=== PATIENT | female | born 1960 | race Caucasian/White ===

== ENCOUNTER 2022-04-11 13:29 | Emergency (ER) | payer BC ==
[2022-04-11 14:25] LABS: #Eosinphils 0.3 thou/uL (0.0-0.7); #Lymphocytes 1.7 thou/uL (1.20-3.40); #Monocytes 0.9 thou/uL (0.11-0.59); #Neutrophils 4.3 thou/uL (1.40-6.50); %Basophils 0.4 % (0.0-1.0); %Eosinophils 3.7 % (0.0-10.0); %Lymphocytes 23.5 % (21.0-51.0); %Neutrophils 60.5 % (42.0-75.0); Hemoglobin 10.6 g/dL (12.0-16.0); Mean Corpuscular HGB CONC 33.5 g/dL (32.0-36.0); Mean Corpuscular Hemoglobin 31.9 pg (27.0-31.0); Mean Platelet Volume 6.6 fL (7.4-10.4); Platelet Count 348 thou/uL (130-400); RBC Distribution Width 12.7 % (11.5-14.5); Red Blood Cell (RBC) Count 3.33 mill/uL (4.20-5.40); White Blood Cell (WBC) Count 7.2 thou/uL (4.8-10.8)
[2022-04-11 14:45] LABS: ALT (SGPT) 21 U/L (8-55); AST (SGOT) 19 U/L (5-34); Albumin 3.8 g/dL (3.5-5.0); Alkaline Phosphatase 55 U/L (40-110); Anion Gap 11 mmol/L (10-20); BUN (Urea Nitrogen) 12 mg/dL (9.8-20.1); Bilirubin, Total 0.4 mg/dL (0.2-1.2); Calc. Creatinine Clearance 0 mL/min (70-130); Calcium 8.7 mg/dL (7.8-10.44); Carbon Dioxide 27 mmol/L (22-29); Chloride 93 mmol/L (98-107); Estimated GFR 86; Globulin 2.7 g/dL (2.4-3.5); Glucose 94 mg/dL (70-105); Potassium 4.1 mmol/L (3.5-5.1); Protein, Total 6.5 g/dL (6.0-8.3); Sodium 127 mmol/L (136-145)
== END 2022-04-11 16:01 | disposition home or self-care (01) ==
LOC: ERS 13:29
DX: D64.9 Anemia, unspecified (principal); E87.1 Hypo-osmolality and hyponatremia; I10 Essential (primary) hypertension; Z79.899 Other long term (current) drug therapy
CPT/HCPCS: 36415; 80053; 84484; 85025; 93005; 96360

== ENCOUNTER 2022-08-25 13:04 | Outpatient (CLI) | payer BC ==
[2022-08-25 13:53] LABS: Anion Gap 14 mmol/L (10-20); BUN (Urea Nitrogen) 13 mg/dL (9.8-20.1); Calc. Creatinine Clearance 0 mL/min (70-130); Calcium 9.5 mg/dL (7.8-10.44); Carbon Dioxide 23 mmol/L (23-31); Chloride 103 mmol/L (98-107); Estimated GFR 75; Glucose 101 mg/dL (80-115); INR-International Normal Ratio 0.9; PTT 26.7 sec (22.0-33.0); Potassium 4.4 mmol/L (3.5-5.1); Prothrombin Time 10.3 sec (9.5-12.1); Sodium 136 mmol/L (136-145)
[2022-08-25 14:02] LABS: Hemoglobin 11.3 g/dL (12.0-15.5); Mean Corpuscular HGB CONC 33.8 g/dL (32.0-36.0); Mean Corpuscular Hemoglobin 30.4 pg (27.0-33.0); Mean Corpuscular Volume 89.8 fl (81.6-98.3); Mean Platelet Volume 9.4 fl (7.4-10.4); Platelet Count 418 10x3/uL (150-450); RBC Distribution Width 13.6 % (11.5-14.5); Red Blood Cell (RBC) Count 3.72 10x6/uL (3.90-5.03); White Blood Cell (WBC) Count 7.6 10x3/uL (3.5-10.5)
== END 2022-08-25 13:05 | disposition home or self-care (01) ==
LOC: LABBT 13:04
PROVIDERS: ATTEND Surgery
DX: Z01.812 Encounter for preprocedural laboratory examination (principal); M48.062 Spinal stenosis, lumbar region with neurogenic claudication; M71.30 Other bursal cyst, unspecified site
CPT/HCPCS: 80048; 85027; 85610; 85730

== ENCOUNTER 2022-08-28 06:04 | Observation (INO) | payer BC ==
[2022-08-27 12:19] VITALS: BMI 33.5
[2022-08-28] MEDS ORDERED: Thrombin 5000 UNITS/5 ML VIAL ONE (06:24)
[2022-08-28] MEDS ORDERED: Vancomycin 1 GM VIAL ONE (06:24)
[2022-08-28] MEDS ORDERED: Famotidine/PF 20 mg/2ml Vial ONE (06:46)
[2022-08-28] MEDS ORDERED: PROPOFOL 200 MG/20 ML VIAL ONE (06:51)
[2022-08-28] MEDS ORDERED: Lidocaine 1% PF 5 ML VIAL ONE (06:51)
[2022-08-28] MEDS ORDERED: PHENYLEPHRINE-NS 100 MCG/ML 10 ML SYRINGE ONE ×2 (06:51→08:41)
[2022-08-28] MEDS ORDERED: Dexamethasone 20 MG/5 ML VIAL ONE (06:51)
[2022-08-28] MEDS ORDERED: Ondansetron PF 4 MG/2 ML Vial ONE (06:51)
[2022-08-28] MEDS ORDERED: Rocuronium Bromide 10 MG/ML (10ML VIAL) ONE (06:51)
[2022-08-28 07:02] LABS: SARS-CoV-2 NAA Rapid Test Not Detected (NotDetected)
[2022-08-28] MEDS ORDERED: Fentanyl 250 MCG/5 ML VIAL ONE (07:10)
[2022-08-28] MEDS ORDERED: Sodium Chloride 0.9% 100 ML ONE (07:11)
[2022-08-28] MEDS ORDERED: CEFAZOLIN 2 GM VIAL ONE (07:11)
[2022-08-28] MEDS ORDERED: SUGAMMADEX SODIUM 200 MG/2 ML VIAL ONE (10:02)
[2022-08-28] MEDS ORDERED: Bacitracin Zinc Ointment 30 gm TUBE ONE (10:34)
[2022-08-28] MEDS ORDERED: diphenhydrAMINE 25 MG CAP PO PRN (10:43)
[2022-08-28] MEDS ORDERED: Acetaminophen/Codeine 30-300mg Tablet PO PRN (10:43)
[2022-08-28] MEDS ORDERED: Ondansetron PF 4 MG/2 ML Vial IVP PRN (10:43)
[2022-08-28] MEDS ORDERED: HYDROcodone/Acetaminophen 5/325 mg Tablet PO PRN (10:46)
[2022-08-28] MEDS ORDERED: Fentanyl 100 MCG/2 ML VIAL ONE ×2 (11:00→11:24)
[2022-08-28] MEDS ORDERED: Promethazine HCl 25 MG/ML VIAL IVPB PRN (11:02)
[2022-08-28] MEDS ORDERED: PACU-Morphine 4MG/ML VIAL SLOW IVP PRN (11:02)
[2022-08-28] MEDS ORDERED: Morphine Sulfate 2 MG/ML SYRINGE SLOW IVP PRN (11:02)
[2022-08-28] MEDS ORDERED: HYDROmorphone 2 MG/ML VIAL SLOW IVP PRN (11:02)
[2022-08-28] MEDS ORDERED: Ondansetron HCl/PF 4 MG/2 ML Vial IVP PRN (11:02)
[2022-08-28] MEDS ORDERED: Promethazine HCl 25 MG/ML VIAL IM PRN (11:02)
[2022-08-28] MEDS ORDERED: Morphine 4 MG/ML VIAL SLOW IVP PRN (11:21)
[2022-08-28] MEDS: Sodium Chloride 0.9% 1,000 ML IV SCH (12:55)
[2022-08-28] MEDS ORDERED: Polyethylene Glycol 3350 17 GM Packet PO PRN (13:24)
[2022-08-28] MEDS ORDERED: hydrALAZINE 20 MG/ML VIAL SLOW IVP PRN (13:24)
[2022-08-28] MEDS ORDERED: Diazepam 5 MG TAB PO PRN (14:18)
[2022-08-28] MEDS: CEFAZOLIN 2 GM in Sodium Chloride 0.9% 100 ML IVPB SCH ×2 (14:18→23:36)
[2022-08-28] MEDS ORDERED: Diazepam 5 MG TAB PO SCH (14:19)
[2022-08-28] MEDS: Ketorolac Tromethamine 30 MG/ML VIAL IVP PRN (14:19)
[2022-08-28] MEDS: HYDROcodone/Acetaminophen 10/325 mg Tablet PO PRN ×2 (14:19→20:27)
[2022-08-28] MEDS: Dexamethasone 4 MG TAB PO SCH ×2 (14:19→20:25)
[2022-08-28] MEDS: Acetaminophen 325 MG TAB PO PRN (17:45)
[2022-08-28] MEDS: Baclofen 10 MG TAB PO SCH (20:27)
[2022-08-28] MEDS: Docusate 100 MG CAP PO SCH (20:28)
[2022-08-28] MEDS ORDERED: Pregabalin 50 MG CAP PO SCH (21:00)
[2022-08-28] MEDS ORDERED: metFORMIN 500 MG TAB PO SCH (21:00)
[2022-08-28] MEDS ORDERED: Amlodipine 5 MG TAB PO SCH (21:00)
[2022-08-28 21:21] VITALS: TEMP 97.8
[2022-08-29] MEDS: Sodium Chloride 0.9% 1,000 ML IV SCH (00:29)
[2022-08-29] MEDS: Dexamethasone 4 MG TAB PO SCH ×2 (03:02→13:34)
[2022-08-29 05:46] LABS: #Lymphocytes 1.2 thou/uL (1.20-3.40); #Monocytes 0.9 thou/uL (0.11-0.59); #Neutrophils 10.4 thou/uL (1.40-6.50); %Basophils 0.2 % (0.0-1.0); %Eosinophils 0.1 % (0.0-10.0); %Lymphocytes 9.3 % (21.0-51.0); %Neutrophils 83.4 % (42.0-75.0); Hemoglobin 10.2 g/dL (12.0-16.0); Mean Corpuscular HGB CONC 32.2 g/dL (32.0-36.0); Mean Corpuscular Hemoglobin 30.8 pg (27.0-31.0); Mean Corpuscular Volume 95.4 fl (78.0-98.0); Mean Platelet Volume 7.5 fL (7.4-10.4); Platelet Count 339 10x3/uL (130-400); RBC Distribution Width 12.3 % (11.5-14.5); White Blood Cell (WBC) Count 12.4 10x3/uL (4.8-10.8)
[2022-08-29] MEDS: Acetaminophen 325 MG TAB PO PRN (06:00)
[2022-08-29 06:08] LABS: Anion Gap 14 mmol/L (10-20); BUN (Urea Nitrogen) 12 mg/dL (9.8-20.1); Calc. Creatinine Clearance 107 mL/min (70-130); Calcium 8.9 mg/dL (7.8-10.44); Carbon Dioxide 22 mmol/L (23-31); Chloride 104 mmol/L (98-107); Estimated GFR 88; Glucose 127 mg/dL (80-115); Potassium 4.3 mmol/L (3.5-5.1); Sodium 136 mmol/L (136-145)
[2022-08-29 06:11] VITALS: BP 149/80
[2022-08-29] MEDS: HYDROcodone/Acetaminophen 10/325 mg Tablet PO PRN (08:55)
[2022-08-29] MEDS: Docusate 100 MG CAP PO SCH (08:56)
[2022-08-29] MEDS: Baclofen 10 MG TAB PO SCH (08:56)
[2022-08-29] MEDS: Ketorolac Tromethamine 30 MG/ML VIAL IVP PRN (08:59)
[2022-08-29] MEDS ORDERED: Estradiol 1 MG TAB PO SCH (09:00)
[2022-08-29] MEDS ORDERED: Pregabalin 50 MG CAP PO SCH (09:00)
[2022-08-29] MEDS ORDERED: Dexamethasone 1 MG TAB PO SCH (14:00)
[2022-08-30] MEDS ORDERED: Dexamethasone 1 MG TAB PO SCH (14:00)
[2022-08-31] MEDS ORDERED: Dexamethasone 1 MG TAB PO SCH (14:00)
== END 2022-08-29 10:30 | disposition home or self-care (01) ==
LOC: SDC 06:04 → SJJU 11:52
PROVIDERS: ADMIT Surgery; ATTEND Surgery
PROC: 01NB0ZZ Release Lumbar Nerve, Open Approach (ICD-10-PCS; principal; 2022-08-28)
PROC: 0QB00ZZ Excision of Lumbar Vertebra, Open Approach (ICD-10-PCS; 2022-08-28)
PROC: 01NB0ZZ Release Lumbar Nerve, Open Approach (ICD-10-PCS; 2022-08-28)
PROC: 01NB0ZZ Release Lumbar Nerve, Open Approach (ICD-10-PCS; 2022-08-28)
PROC: 01NR0ZZ Release Sacral Nerve, Open Approach (ICD-10-PCS; 2022-08-28)
DX: M71.38 Other bursal cyst, other site (principal); M48.062 Spinal stenosis, lumbar region with neurogenic claudication; M51.26 Other intervertebral disc displacement, lumbar region; M47.816 Spondylosis without myelopathy or radiculopathy, lumbar region; M51.17 Intervertebral disc disorders with radiculopathy, lumbosacral region; M48.07 Spinal stenosis, lumbosacral region; Z79.1 Long term (current) use of non-steroidal anti-inflammatories (NSAID); Z79.84 Long term (current) use of oral hypoglycemic drugs; Z79.899 Other long term (current) drug therapy; Z88.1 Allergy status to other antibiotic agents; Z88.8 Allergy status to other drugs, medicaments and biological substances; Z91.048 Other nonmedicinal substance allergy status; Z20.822 Contact with and (suspected) exposure to COVID-19
CPT/HCPCS: 36415; 80048; 85025; 96365; 96375; 96376; G0378; J1100; J1885; J2270; J2405; J2704; J3010; J3370; J3490; J7050; J8540; S0028; U0002

== ENCOUNTER 2022-12-02 21:48 | Inpatient (IN) | payer BC ==
[~2022-12-02 21:48] MED LIST: Iopamidol-370 76% 500 ML MDV (1 ML CHARGE) ONE
[2022-12-02] MEDS ORDERED: Acetaminophen 500 MG TAB ONE (22:05)
[2022-12-02] MEDS ORDERED: Cefepime 2 GM VIAL ONE (22:05)
[2022-12-02 22:39] LABS: Hemoglobin 9.5 g/dL (12.0-16.0); Mean Corpuscular HGB CONC 33.4 g/dL (32.0-36.0); Mean Corpuscular Hemoglobin 30.1 pg (27.0-31.0); Mean Corpuscular Volume 90.3 fl (78.0-98.0); Platelet Count 515 10x3/uL (130-400); RBC Distribution Width 13.6 % (11.5-14.5); Red Blood Cell (RBC) Count 3.14 mill/uL (4.20-5.40); White Blood Cell (WBC) Count 32.9 10x3/uL (4.8-10.8)
[2022-12-02 22:44] LABS: INR-International Normal Ratio 1.1; PTT 25.5 sec (22.9-36.1); Prothrombin Time 14.8 sec (12.0-14.7)
[2022-12-02 22:49] LABS: Acetaminophen Less than 10.0 mcg/mL (10.0-30.0); Alcohol Less than 10 mg/dL (Less than 10); Salicylate Less than 8.0 mg/dL (15.0-30.0)
[2022-12-02 22:51] LABS: ALT (SGPT) 22 U/L (8-55); AST (SGOT) 21 U/L (5-34); Albumin 3.3 g/dL (3.4-4.8); Alkaline Phosphatase 204 U/L (40-110); Anion Gap 17 mmol/L (10-20); BUN (Urea Nitrogen) 16 mg/dL (9.8-20.1); Bilirubin, Total 0.6 mg/dL (0.2-1.2); CK (CPK) 18 U/L (29-168); CRP (Inflammatory) 3.59 mg/dL (= or < 0.5); Calc. Creatinine Clearance 0 mL/min (70-130); Calcium 8.6 mg/dL (7.8-10.44); Carbon Dioxide 18 mmol/L (23-31); Chloride 100 mmol/L (98-107); Estimated GFR 57; Globulin 2.9 g/dL (2.4-3.5); Glucose 124 mg/dL (80-115); Magnesium 1.5 mg/dL (1.6-2.6); Potassium 4.4 mmol/L (3.5-5.1); Protein, Total 6.2 g/dL (5.8-8.1); Sodium 131 mmol/L (136-145)
[2022-12-02 22:56] LABS: SARS-CoV-2 NAA Rapid Test Not Detected (NotDetected)
[2022-12-02 23:08] LABS: Band 12 % (5-11); Lymphocytes 2 % (21-51); MDiff Complete? YES; Neutrophil 86 % (42-75); Platelet Morphology Comment Appears Increased; Polychromasia SLIGHT = 2-3 cells (100X) (0-2/hpf); Tear Drops SLIGHT = 2-5 cells (100X) (0-1/hpf)
[2022-12-02] MEDS ORDERED: Magnesium 2 GM/50 ML BAG (IN WATER) ONE (23:19)
[2022-12-02] MEDS ORDERED: Vancomycin 1 GM/200 ML (FROZEN) BAG ONE (23:46)
[2022-12-03 01:44] LABS: Lactic Acid 2.5 mmol/L (0.5-2.2)
[2022-12-03] MEDS ORDERED: Ondansetron ODT 4 MG TAB PO PRN (01:48)
[2022-12-03] MEDS ORDERED: traZODone HCl 50 MG TAB PO PRN (01:54)
[2022-12-03 03:34] VITALS: BMI 34.5
[2022-12-03] MEDS ORDERED: Phenol 118 ML BOT PO PRN (03:59)
[2022-12-03] MEDS ORDERED: hydrOXYzine 25 MG TAB PO SCH (04:00)
[2022-12-03 05:22] LABS: Hemoglobin 9.5 g/dL (12.0-16.0); Mean Corpuscular HGB CONC 32.3 g/dL (32.0-36.0); Mean Corpuscular Hemoglobin 29.6 pg (27.0-31.0); Mean Corpuscular Volume 91.4 fl (78.0-98.0); Mean Platelet Volume 7.3 fL (7.4-10.4); Platelet Count 425 10x3/uL (130-400); Red Blood Cell (RBC) Count 3.22 mill/uL (4.20-5.40)
[2022-12-03 05:43] LABS: ALT (SGPT) 19 U/L (8-55); AST (SGOT) 25 U/L (5-34); Albumin 2.5 g/dL (3.4-4.8); Alkaline Phosphatase 151 U/L (40-110); Anion Gap 18 mmol/L (10-20); BUN (Urea Nitrogen) 18 mg/dL (9.8-20.1); Bilirubin, Total 0.8 mg/dL (0.2-1.2); Calc. Creatinine Clearance 82 mL/min (70-130); Calcium 8.1 mg/dL (7.8-10.44); Carbon Dioxide 15 mmol/L (23-31); Chloride 101 mmol/L (98-107); Estimated GFR 60; Globulin 3.2 g/dL (2.4-3.5); Glucose 104 mg/dL (80-115); Potassium 4.6 mmol/L (3.5-5.1); Protein, Total 5.7 g/dL (5.8-8.1); Sodium 129 mmol/L (136-145)
[2022-12-03 05:56] LABS: Band 19 % (5-11); Lymphocytes 1 % (21-51); MDiff Complete? YES; Neutrophil 80 % (42-75); Platelet Morphology Comment Appears Increased; Polychromasia SLIGHT = 2-3 cells (100X) (0-2/hpf)
[2022-12-03 08:38] LABS: Bacteria/HPF None Seen HPF (None Seen); Bilirubin Negative (Negative); Blood, Urine Negative (Negative); Clarity Clear (Clear); Glucose, Urine (Dipstick) Normal (Negative); Ketone, Urine Negative (Negative); Leukocyte 75 Leu/uL (Negative); Nitrite Negative (Negative); Protein, Urine (Dipstick) 20 mg/dL (Neg-Trace); Specific Gravity, Urine 1.046 (1.002-1.036); Urobilinogen Normal mg/dL (Less than 2); WBC/HPF 21-50 HPF (0-3)
[2022-12-03] MEDS ORDERED: Magnevist 469MG/ML 20 ML VIAL ONE (09:29)
[2022-12-03] MEDS: Sodium Chloride 0.9% 1,000 ML IV SCH ×2 (09:37→20:02)
[2022-12-03] MEDS: Cefepime 1 GM in Sodium Chloride 0.9% 100 ML IVPB SCH ×2 (09:37→21:17)
[2022-12-03] MEDS: Baclofen 10 MG TAB PO SCH ×2 (09:38→21:16)
[2022-12-03] MEDS: Famotidine 20 MG TAB PO SCH ×2 (09:38→21:16)
[2022-12-03] MEDS: Pregabalin 50 MG CAP PO SCH ×2 (09:38→21:16)
[2022-12-03] MEDS: Acetaminophen 325 MG TAB PO PRN (11:42)
[2022-12-03] MEDS: metroNIDAZOLE 500 MG in Premix Bag 1 BAG IVPB SCH ×2 (11:42→23:57)
[2022-12-03] MEDS ORDERED: FENTANYL 50 MCG/ML 1 ML VIAL ONE (15:57)
[2022-12-03] MEDS ORDERED: metFORMIN 500 MG TAB PO SCH (17:00)
[2022-12-03 19:56] LABS: Actual Bicarbonate (HCO3a) 18.5 mEq/L (22-28); Base Excess (BEa) -4.6 mEq/L (-2.0 to +3.0); CO2 Tension 27.5 mmHg (35.0-45.0); Carboxyhemoglobin (COHb) 0.1 gm% (0.0-3.0); Hemoglobin (Hb) 9.7 g/dL (12.0-16.0); O2 Tension (PaO2), arterial 70.4 mmHg (> 80.0); Potassium - ABG Lab 4.64 mmol/L (3.70-5.30); pH, Arterial 7.45 (7.35-7.45)
[2022-12-03 19:58] LABS: ALV-art Gradient 44.955 mmHg (0-20); Puncture Site RRA
[2022-12-03 20:00] LABS: Campy jejuni + coli by PCR Negative (Negative); STEC Shiga Toxin 1+2 Negative (Negative); Salmonella spp. by PCR Negative (Negative); Shigella spp + EIEC by PCR Negative (Negative)
[2022-12-03] MEDS: Amlodipine 5 MG TAB PO SCH (20:06)
[2022-12-03] MEDS ORDERED: Vancomycin 1 GM in Premix Bag 1 BAG IVPB SCH (21:00)
[2022-12-03] MEDS: Vancomycin 1 GM in Premix Bag 1 BAG IVPB SCH (21:12)
[2022-12-04] MEDS: Sodium Chloride 0.9% 1,000 ML IV SCH ×2 (06:11→15:29)
[2022-12-04 06:55] LABS: Hemoglobin 8.7 g/dL (12.0-16.0); Mean Corpuscular HGB CONC 31.9 g/dL (32.0-36.0); Mean Corpuscular Hemoglobin 28.8 pg (27.0-31.0); Mean Corpuscular Volume 90.2 fl (78.0-98.0); Mean Platelet Volume 7.5 fL (7.4-10.4); Platelet Count 400 10x3/uL (130-400); RBC Distribution Width 13.6 % (11.5-14.5); Red Blood Cell (RBC) Count 3.01 mill/uL (4.20-5.40); White Blood Cell (WBC) Count 35.7 10x3/uL (4.8-10.8)
[2022-12-04 07:14] LABS: ALT (SGPT) 19 U/L (8-55); AST (SGOT) 28 U/L (5-34); Albumin 2.3 g/dL (3.4-4.8); Alkaline Phosphatase 126 U/L (40-110); Anion Gap 13 mmol/L (10-20); BUN (Urea Nitrogen) 18 mg/dL (9.8-20.1); Bilirubin, Total 0.6 mg/dL (0.2-1.2); Calc. Creatinine Clearance 109 mL/min (70-130); Carbon Dioxide 18 mmol/L (23-31); Chloride 102 mmol/L (98-107); Estimated GFR 85; Globulin 3.2 g/dL (2.4-3.5); Glucose 94 mg/dL (80-115); Potassium 3.8 mmol/L (3.5-5.1); Protein, Total 5.5 g/dL (5.8-8.1); Sodium 129 mmol/L (136-145)
[2022-12-04 08:42] LABS: Band 26 % (5-11); Eosinophils 1 % (0-10); Lymphocytes 1 % (21-51); MDiff Complete? YES; Monocytes 2 % (0-10); Neutrophil 70 % (42-75); Platelet Morphology Comment Appears Adequate; Polychromasia SLIGHT = 2-3 cells (100X) (0-2/hpf)
[2022-12-04] MEDS: Acetaminophen 325 MG TAB PO PRN (09:09)
[2022-12-04] MEDS: Pregabalin 50 MG CAP PO SCH ×2 (09:10→21:22)
[2022-12-04] MEDS: Famotidine 20 MG TAB PO SCH (09:11)
[2022-12-04] MEDS: Baclofen 10 MG TAB PO SCH ×2 (09:11→21:22)
[2022-12-04] MEDS: metroNIDAZOLE 500 MG in Premix Bag 1 BAG IVPB SCH ×2 (09:12→13:00)
[2022-12-04] MEDS: cefTRIAXone\\ROCEPHIN 2 GM in Sodium Chloride 0.9% 100 ML IVPB SCH ×2 (09:26→21:42)
[2022-12-04] MEDS: Ampicillin 2 GM in Sodium Chloride 0.9% 100 ML IVPB SCH ×4 (09:27→21:00)
[2022-12-04] MEDS: Vancomycin 1 GM in Premix Bag 1 BAG IVPB SCH ×2 (09:27→18:30)
[2022-12-04] MEDS ORDERED: HumaLOG 300 UNITS/3 ML VIAL SC PRN ×2 (10:01)
[2022-12-04] MEDS ORDERED: Dextrose 50% Abboject 50 ML SYRINGE SLOW IVP PRN (10:01)
[2022-12-04] MEDS ORDERED: Dextrose 5% in Water 1,000 ML IV PRN (10:01)
[2022-12-04] MEDS ORDERED: Hydrocortisone Sod Succ/PF 100 mg/2 ml Vial IVP SCH (12:00)
[2022-12-04 12:45] LABS: CSF, Glucose 54 mg/dl (40-70); CSF, Protein 31 mg/dL (15-40)
[2022-12-04 13:51] LABS: CSF Source CSF; Clarity Clear (Clear); Tube # 4
[2022-12-04] MEDS ORDERED: Micafungin 100 MG in Sodium Chloride 0.9% 100 ML IVPB SCH (15:00)
[2022-12-04] MEDS ORDERED: methylPREDNISolone Sod Succ/PF 125 MG/2 ML VIAL IVP SCH (16:45)
[2022-12-04] MEDS: Amlodipine 5 MG TAB PO SCH (21:22)
[2022-12-05] MEDS: metroNIDAZOLE 500 MG in Premix Bag 1 BAG IVPB SCH ×4 (00:08→13:26)
[2022-12-05] MEDS: Sodium Chloride 0.9% 1,000 ML IV SCH ×2 (00:26→13:26)
[2022-12-05] MEDS: Ampicillin 2 GM in Sodium Chloride 0.9% 100 ML IVPB SCH ×3 (01:10→11:08)
[2022-12-05] MEDS ORDERED: Ipratropium/Albuterol 3 ML NEB NEB SCH (06:15)
[2022-12-05] MEDS: Benzonatate 100 MG CAP PO PRN (07:46)
[2022-12-05] MEDS: Baclofen 10 MG TAB PO SCH ×2 (07:52→20:59)
[2022-12-05] MEDS: Pregabalin 50 MG CAP PO SCH (07:52)
[2022-12-05 08:34] LABS: Hemoglobin 8.8 g/dL (12.0-16.0); Mean Corpuscular HGB CONC 32.2 g/dL (32.0-36.0); Mean Corpuscular Hemoglobin 29.3 pg (27.0-31.0); Mean Corpuscular Volume 90.7 fl (78.0-98.0); Mean Platelet Volume 7.7 fL (7.4-10.4); Platelet Count 461 10x3/uL (130-400); RBC Distribution Width 13.7 % (11.5-14.5); White Blood Cell (WBC) Count 16.6 10x3/uL (4.8-10.8)
[2022-12-05 08:42] LABS: Vancomycin, Trough 10.3 ug/mL
[2022-12-05 08:45] LABS: ALT (SGPT) 19 U/L (8-55); AST (SGOT) 25 U/L (5-34); Albumin 2.4 g/dL (3.4-4.8); Alkaline Phosphatase 117 U/L (40-110); Anion Gap 12 mmol/L (10-20); BUN (Urea Nitrogen) 12 mg/dL (9.8-20.1); Bilirubin, Total 0.3 mg/dL (0.2-1.2); Calc. Creatinine Clearance 135 mL/min (70-130); Calcium 8.1 mg/dL (7.8-10.44); Carbon Dioxide 20 mmol/L (23-31); Chloride 105 mmol/L (98-107); Estimated GFR 100; Globulin 3.3 g/dL (2.4-3.5); Glucose 200 mg/dL (80-115); Potassium 3.5 mmol/L (3.5-5.1); Protein, Total 5.7 g/dL (5.8-8.1); Sodium 133 mmol/L (136-145)
[2022-12-05 08:57] LABS: CRP (Inflammatory) 35.03 mg/dL (= or < 0.5)
[2022-12-05] MEDS ORDERED: Pantoprazole 40 MG VIAL IVP SCH (09:00)
[2022-12-05] MEDS ORDERED: metFORMIN 500 MG TAB PO SCH (09:15)
[2022-12-05 09:54] LABS: Band 5 % (5-11); Hypochromia SLIGHT = 6-15 cells (100X) (0-5/hpf); Lymphocytes 7 % (21-51); MDiff Complete? YES; Monocytes 3 % (0-10); Neutrophil 85 % (42-75); Platelet Morphology Comment Appears Increased; Polychromasia SLIGHT = 2-3 cells (100X) (0-2/hpf)
[2022-12-05] MEDS: Saccharomyces boulardii 250 MG CAP PO SCH (09:55)
[2022-12-05] MEDS: Famotidine 20 MG TAB PO SCH ×2 (09:55→20:52)
[2022-12-05] MEDS: Vancomycin 1 GM in Premix Bag 1 BAG IVPB SCH (10:35)
[2022-12-05] MEDS: cefTRIAXone\\ROCEPHIN 2 GM in Sodium Chloride 0.9% 100 ML IVPB SCH (11:08)
[2022-12-05] MEDS ORDERED: methylPREDNISolone Sod Succ 40 MG VIAL IVP SCH (18:00)
[2022-12-05] MEDS ORDERED: predniSONE 20 MG TAB PO SCH (18:15)
[2022-12-05 19:14] LABS: Cytoplasmic (C-ANCA) <1:20 titer (Neg:<1:20); Myeloperoxidase AutoAbs <0.2 units (0.0-0.9); Perinuclear (P-ANCA) <1:20 titer (Neg:<1:20); Proteinase-3 AutoAbs Less than 0.2 units (0.0-0.9)
[2022-12-05] MEDS ORDERED: VANCOMYCIN 1.25 GM/250 ML BAG 1.25 GM in Premix Bag 1 BAG IVPB SCH (20:00)
[2022-12-05] MEDS: Vancomycin 1.5 GRAM/300 ML BAG 1.5 GM in Premix Bag 1 BAG IVPB SCH (20:44)
[2022-12-05] MEDS: Amlodipine 5 MG TAB PO SCH (20:59)
[2022-12-05] MEDS: Estradiol 1 MG TAB PO SCH (21:00)
[2022-12-05] MEDS: guaiFENesin/Codeine 200 mg/20 mg 10 ml Cup PO PRN (22:27)
[2022-12-05] MEDS ORDERED: Ipratropium/Albuterol 3 ML NEB NEB PRN (23:05)
[2022-12-06] MEDS: guaiFENesin/Codeine 200 mg/20 mg 10 ml Cup PO PRN ×2 (03:49→22:09)
[2022-12-06] MEDS: Vancomycin 1.5 GRAM/300 ML BAG 1.5 GM in Premix Bag 1 BAG IVPB SCH (08:26)
[2022-12-06] MEDS: Benzonatate 100 MG CAP PO PRN (08:26)
[2022-12-06] MEDS: CO Q-10 CAPSULE 100 MG PO SCH (08:26)
[2022-12-06] MEDS: Saccharomyces boulardii 250 MG CAP PO SCH (08:26)
[2022-12-06] MEDS: predniSONE 20 MG TAB PO SCH (08:27)
[2022-12-06] MEDS: metFORMIN 500 MG TAB PO SCH (08:28)
[2022-12-06] MEDS: Famotidine 20 MG TAB PO SCH ×2 (08:28→20:36)
[2022-12-06] MEDS: Baclofen 10 MG TAB PO SCH ×2 (08:28→20:36)
[2022-12-06 09:23] LABS: #Lymphocytes 1.4 thou/uL (1.20-3.40); #Neutrophils 7.3 thou/uL (1.40-6.50); %Basophils 0.2 % (0.0-1.0); %Eosinophils 0.1 % (0.0-10.0); %Lymphocytes 14.2 % (21.0-51.0); %Neutrophils 75.6 % (42.0-75.0); Mean Corpuscular HGB CONC 33.1 g/dL (32.0-36.0); Mean Corpuscular Hemoglobin 29.5 pg (27.0-31.0); Mean Platelet Volume 7.9 fL (7.4-10.4); Platelet Count 577 10x3/uL (130-400); RBC Distribution Width 13.7 % (11.5-14.5); Red Blood Cell (RBC) Count 3.37 mill/uL (4.20-5.40); White Blood Cell (WBC) Count 9.7 10x3/uL (4.8-10.8)
[2022-12-06 09:46] LABS: ALT (SGPT) 20 U/L (8-55); AST (SGOT) 18 U/L (5-34); Albumin 2.9 g/dL (3.4-4.8); Alkaline Phosphatase 114 U/L (40-110); Anion Gap 12 mmol/L (10-20); BUN (Urea Nitrogen) 14 mg/dL (9.8-20.1); Bilirubin, Total 0.3 mg/dL (0.2-1.2); Calc. Creatinine Clearance 137 mL/min (70-130); Calcium 8.7 mg/dL (7.8-10.44); Carbon Dioxide 21 mmol/L (23-31); Chloride 103 mmol/L (98-107); Estimated GFR 101; Globulin 3.3 g/dL (2.4-3.5); Glucose 166 mg/dL (80-115); Magnesium 1.7 mg/dL (1.6-2.6); Phosphorus 2.6 mg/dL (2.3-4.7); Potassium 3.3 mmol/L (3.5-5.1); Protein, Total 6.2 g/dL (5.8-8.1); Sodium 133 mmol/L (136-145)
[2022-12-06] MEDS ORDERED: Benzonatate 100 MG CAP PO PRN (11:17)
[2022-12-06] MEDS ORDERED: Furosemide 20 MG/2 ML VIAL SLOW IVP SCH (11:45)
[2022-12-06] MEDS ORDERED: Electrolyte Replacement Protocol 1 EACH FS SCH (12:45)
[2022-12-06] MEDS ORDERED: Potassium Chloride 20 MEQ TAB PO SCH ×2 (14:00→21:00)
[2022-12-06] MEDS ORDERED: Magnesium 2 GM/50 ML(in water) 2 GM in Premix Bag 1 BAG IVPB SCH (14:00)
[2022-12-06] MEDS ORDERED: Electrolyte Replacement Protocol FS PRN (14:00)
[2022-12-06] MEDS ORDERED: Mometasone Furoate 120 PUFF 220 MCG INH SCH (14:00)
[2022-12-06 18:29] LABS: Potassium 3.5 mmol/L (3.5-5.1)
[2022-12-06] MEDS: Amlodipine 5 MG TAB PO SCH (20:37)
[2022-12-06] MEDS: Estradiol 1 MG TAB PO SCH (20:37)
[2022-12-06] MEDS: Losartan 25 MG TAB PO SCH (21:16)
[2022-12-07] MEDS: Acetaminophen 325 MG TAB PO PRN ×2 (00:38→17:11)
[2022-12-07] MEDS: guaiFENesin/Codeine 200 mg/20 mg 10 ml Cup PO PRN ×2 (03:40→21:48)
[2022-12-07 05:02] LABS: Anion Gap 13 mmol/L (10-20); BUN (Urea Nitrogen) 14 mg/dL (9.8-20.1); Calc. Creatinine Clearance 131 mL/min (70-130); Calcium 8.8 mg/dL (7.8-10.44); Carbon Dioxide 25 mmol/L (23-31); Chloride 100 mmol/L (98-107); Estimated GFR 100; Glucose 149 mg/dL (80-115); Magnesium 1.8 mg/dL (1.6-2.6); Potassium 3.4 mmol/L (3.5-5.1); Sodium 135 mmol/L (136-145)
[2022-12-07 05:07] LABS: Band 1 % (5-11); Hemoglobin 10.6 g/dL (12.0-16.0); Hypochromia SLIGHT = 6-15 cells (100X) (0-5/hpf); Lymphocytes 44 % (21-51); MDiff Complete? YES; Mean Corpuscular HGB CONC 34.6 g/dL (32.0-36.0); Mean Corpuscular Hemoglobin 30.5 pg (27.0-31.0); Mean Corpuscular Volume 88.1 fl (78.0-98.0); Mean Platelet Volume 7.8 fL (7.4-10.4); Monocytes 2 % (0-10); Neutrophil 47 % (42-75); Platelet Count 661 10x3/uL (130-400); Platelet Morphology Comment Appears Increased; RBC Distribution Width 13.6 % (11.5-14.5); Reactive Lymphocytes 6 % (0-10); White Blood Cell (WBC) Count 9.6 10x3/uL (4.8-10.8)
[2022-12-07] MEDS: Mometasone Furoate 30 PUFF 220 MCG INH SCH (07:03)
[2022-12-07 07:50] LABS: Vancomycin, Trough 10.5 ug/mL
[2022-12-07] MEDS ORDERED: Magnesium 2 GM/50 ML(in water) 2 GM in Premix Bag 1 BAG IVPB SCH (08:00)
[2022-12-07] MEDS ORDERED: Potassium Chloride 20 MEQ TAB PO SCH ×2 (08:00)
[2022-12-07] MEDS ORDERED: Labetalol HCl 100 MG/20 ML VIAL SLOW IVP PRN (08:50)
[2022-12-07] MEDS ORDERED: Losartan 25 MG TAB PO SCH (09:00)
[2022-12-07] MEDS ORDERED: Amlodipine 5 MG TAB PO SCH ×2 (09:00→21:00)
[2022-12-07] MEDS: CO Q-10 CAPSULE 100 MG PO SCH (09:51)
[2022-12-07] MEDS: Furosemide 20 MG/2 ML VIAL SLOW IVP SCH (09:51)
[2022-12-07] MEDS: predniSONE 20 MG TAB PO SCH (09:52)
[2022-12-07] MEDS: Losartan 25 MG TAB PO SCH ×2 (09:52→20:26)
[2022-12-07] MEDS: Carvedilol 6.25 MG TAB PO SCH ×2 (09:54→20:24)
[2022-12-07] MEDS: Saccharomyces boulardii 250 MG CAP PO SCH (09:58)
[2022-12-07] MEDS: metFORMIN 500 MG TAB PO SCH (09:58)
[2022-12-07] MEDS: Baclofen 10 MG TAB PO SCH ×2 (09:58→20:25)
[2022-12-07] MEDS: Famotidine 20 MG TAB PO SCH ×2 (09:58→20:25)
[2022-12-07 16:58] LABS: ANA Symphony (Qualitative) Negative (Negative); ANA Symphony (Quantitative) 0.4 Ratio (< 0.7 Negative); dsDNA IgG Antibody 1.1 IU/mL (<10 Negative)
[2022-12-07] MEDS: Estradiol 1 MG TAB PO SCH (20:26)
[2022-12-08] MEDS: Acetaminophen 325 MG TAB PO PRN (00:04)
[2022-12-08 06:37] LABS: Hemoglobin 11.2 g/dL (12.0-16.0); Mean Corpuscular HGB CONC 31.8 g/dL (32.0-36.0); Mean Corpuscular Hemoglobin 28.2 pg (27.0-31.0); Mean Corpuscular Volume 88.7 fl (78.0-98.0); Mean Platelet Volume 7.4 fL (7.4-10.4); Platelet Count 799 10x3/uL (130-400); RBC Distribution Width 13.5 % (11.5-14.5); Red Blood Cell (RBC) Count 3.97 mill/uL (4.20-5.40); White Blood Cell (WBC) Count 10.4 10x3/uL (4.8-10.8)
[2022-12-08 06:56] LABS: Anion Gap 12 mmol/L (10-20); BUN (Urea Nitrogen) 17 mg/dL (9.8-20.1); CRP (Inflammatory) 2.68 mg/dL (= or < 0.5); Calc. Creatinine Clearance 133 mL/min (70-130); Calcium 9.2 mg/dL (7.8-10.44); Carbon Dioxide 29 mmol/L (23-31); Chloride 97 mmol/L (98-107); Estimated GFR 100; Glucose 126 mg/dL (80-115); Magnesium 1.8 mg/dL (1.6-2.6); Potassium 3.3 mmol/L (3.5-5.1); Sodium 135 mmol/L (136-145)
[2022-12-08] MEDS: Mometasone Furoate 30 PUFF 220 MCG INH SCH (07:40)
[2022-12-08 07:42] VITALS: TEMP 97.4
[2022-12-08 07:56] LABS: Lymphocytes 35 % (21-51); MDiff Complete? YES; Monocytes 9 % (0-10); Neutrophil 55 % (42-75); Platelet Morphology Comment Appears Increased; RBC Morphology Normal; Reactive Lymphocytes 1 % (0-10)
[2022-12-08] MEDS ORDERED: Magnesium 2 GM/50 ML(in water) 2 GM in Premix Bag 1 BAG IVPB SCH (08:00)
[2022-12-08] MEDS ORDERED: Potassium Chloride 20 MEQ TAB PO SCH (08:00)
[2022-12-08] MEDS: metFORMIN 500 MG TAB PO SCH (08:31)
[2022-12-08] MEDS: predniSONE 20 MG TAB PO SCH (08:31)
[2022-12-08] MEDS: Carvedilol 6.25 MG TAB PO SCH (08:32)
[2022-12-08] MEDS: Saccharomyces boulardii 250 MG CAP PO SCH (08:32)
[2022-12-08] MEDS: CO Q-10 CAPSULE 100 MG PO SCH (08:32)
[2022-12-08] MEDS: Famotidine 20 MG TAB PO SCH (08:32)
[2022-12-08] MEDS: Baclofen 10 MG TAB PO SCH (08:33)
[2022-12-08] MEDS: Losartan 25 MG TAB PO SCH (08:33)
[2022-12-08] MEDS: Furosemide 20 MG/2 ML VIAL SLOW IVP SCH (08:34)
[2022-12-08 08:35] VITALS: BP 137/95
[2022-12-08] MEDS ORDERED: Aspirin 81 mg Enteric Coated Tablet PO SCH (09:00)
[2022-12-08 16:38] LABS: VDRL, CSF Non Reactive (Non Rea:<1:1)
== END 2022-12-08 12:21 | disposition home or self-care (01) | DRG 871 ==
LOC: ERS 21:48 → OBSVTOIN 12-03 01:50 → 2NO 12-03 01:50 → IMCU/EMU 12-03 20:10
PROVIDERS: ADMIT Student in an Organized Health Care Education/Training Program; ATTEND Internal Medicine
PROC: 3E03329 Introduction of Other Anti-infective into Peripheral Vein, Percutaneous Approach (ICD-10-PCS; principal; 2022-12-03)
PROC: 009U3ZX Drainage of Spinal Canal, Percutaneous Approach, Diagnostic (ICD-10-PCS; 2022-12-04)
PROC: B01BZZZ Fluoroscopy of Spinal Cord (ICD-10-PCS; 2022-12-04)
DX: A41.89 Other specified sepsis (principal); G93.41 Metabolic encephalopathy; N17.9 Acute kidney failure, unspecified; E87.1 Hypo-osmolality and hyponatremia; N39.0 Urinary tract infection, site not specified; B34.9 Viral infection, unspecified; J20.8 Acute bronchitis due to other specified organisms; Z20.822 Contact with and (suspected) exposure to COVID-19; E83.42 Hypomagnesemia; E11.69 Type 2 diabetes mellitus with other specified complication; D64.9 Anemia, unspecified; E66.9 Obesity, unspecified; I10 Essential (primary) hypertension; E87.6 Hypokalemia; K21.9 Gastro-esophageal reflux disease without esophagitis; I77.6 Arteritis, unspecified; Z79.84 Long term (current) use of oral hypoglycemic drugs; Z79.899 Other long term (current) drug therapy; Z90.710 Acquired absence of both cervix and uterus; Z68.34 Body mass index [BMI] 34.0-34.9, adult
CPT/HCPCS: 36415; 36416; 36600; 62270; 70450; 70551; 71045; 72125; 72128; 72158; 74177; 80048; 80053; 80202; 80307; 81001; 82533; 82550; 82728; 82805; 82945; 83516; 83605; 83690; 83735; 84100; 84145; 84157; 84443; 85025; 85610; 85652; 85730; 86037; 86038; 86060; 86140; 86225; 86592; 86612; 86635; 86698; 87040; 87070; 87205; 87324; 87449; 87505; 87899; 89051; 93005; 94640; A9579; J0133; J0290; J0692; J0696; J1650; J1720; J1815; J1940; J2248; J2920; J2930; J3010; J3370; J3370-JW; J3475; J3490; J7050; J7512; J7620; Q9967